=== PATIENT | male | born 1990 | race Caucasian/White ===

== ENCOUNTER 2020-06-09 19:11 | Emergency (ER) | payer MEDICAID, SELFPAY ==
[2020-06-09 19:20] VITALS: BP 140/89; PULSE 89; RESP 18; TEMP 36.8; O2SAT 98
--- NOTE | 2020-06-09 20:03 | PDOC.CMSAFED ---
- If Service Date Differs Date of service: 06/09/20 Time of Service: 20:03 Care Management Safety Plan Chief Complaint: Romaine is a 29 year old male who presents in the emergency department for depression and anxiety. He admits to ED staff that he does occasionally have thoughts of not living but denies current suicidal ideation, intent or plan to harm himself. He worries he may have an undiagnosed bipolar disorder due to episodes of jhonny and depression. He is currently enrolled in a MAT program at a [facility]one clinic, but denies seeing a counselor or psychiatrist. CM will respond to ED to assess patient after patient has been medically cleared and assessed by screener. If screener deems patient meets criteria for psychiatric stabilization CM will facilitate interdepartmental huddle with [facility] screener for safety planning considerations and meet with patient to review [facility] policy and safety plan, establish individual wishes for treatment and maintain patient rights. In the interim; please note safety plan below to guide patient care while awaiting further assessment in the ED. SAFETY PLAN: 1. Will remain on suicide precautions and in paper clothes. 2. Will remain in room under direct supervision of one-on-one staff at all times provided by [employer], [employer], [employer] grant coordinator. 3. May have paper cups, plates, finger foods as well as a cardboard spoon with which to eat meals. 4. Follow [facility] Management of the Admitted Behavioral Health Patient policy. 5. Comfort bath system only. 6. No personal belongings 7. Visitors: No visitors at this time. 8. Activities: Soft tip markers, paper, books, television if available, and other activities at nursing discretion. 8. No telephone privileges at this time. 9. Due to VOLUNTARY status, if patient wishes to leave [facility], the [facility] plant production worker must be contacted to evaluate patient prior to patient exiting the building. If deemed appropriate for inpatient psychiatric care, safety plan will be established with patient, and care team, to adhere to patient goals, identify restrictions based on behavioral status, address nutrition, and determine allowed personal belongings, tools for hygiene and personal care. As well plan will determine level of activity including ambulation, level of supervision, visitors, and determine privileges based on level of acuity, behaviors and level of engagement by patient. DISPOSITION: Romaine is evaluated by Milena [facility] Crisis Screener. A plan for follow up with [facility] is created and Romaine is discharged home.
--- NOTE | 2020-06-09 20:28 | W.ED.GENAD ---
Discharge Plan Disposition Patient Disposition: HOME Condition: Stable Discharge Details Clinical Impression: Depression Primary Care Provider: None,None ED Provider: Wale Robbins Discharge Instructions Instructions: Depression (ED) Additional Instructions: Please follow the instructions given to you by the [facility] human services team. They should be reaching out to you tomorrow for additional resources and are in the process of getting you a outpatient mental health provider. I have also placed you on the care management list to help expedite outpatient primary care follow-up. Please watch for new or worsening symptoms and return to the ER for any concerns. Medical Decision Making 29-year-old gentleman who is currently in the [facility], admits to anxiety and depression. He does have episodes of jhonny and feels as though he is not diagnosed properly. He feels as though he likely has bipolar, this does run in his family. He denies any recent illness or trauma. Occasionally has thoughts of harming himself but never wants to act upon them and does not have these thoughts currently. He does not see a counselor, does not have a psychiatrist, and does not have any other outpatient resources. Patient reports that he would prefer to do this as an outpatient. He does not want to voluntarily go in to a facility for treatment and I do not believe as though he would meet criteria for involuntary hold. For this reason I do not believe that laboratory values are indicated. Patient is medically cleared and I have reached out to our mental health team to get him evaluated. Health evaluation took place, please see the note by Milena. Patient does not meet involuntary psychiatric placement. Plan is to discharge the patient from the ER, she will follow up with him tomorrow, and work on additional outpatient resources. I will place the patient on the care management list to help expedite outpatient primary care follow-up as well. I discussed this plan with patient. He is agreeable however he is frustrated because he feels as though he needs to start medications sooner than later and he was hoping that this visit would prompt medications immediately. He understands that it is a process and is comfortable with discharge at this time. He was encouraged to return to the ER for new or worsening symptoms. He does not have any active suicidal or homicidal plans. He feels safe with discharge HPI General Mode of arrival: ambulatory. Date/Time Provider Initiated Documentation: 06/09/20 19:31. Limitations to Documentation: no limitations. Information obtained by: patient and family. HPI Narrative: This is a 29-year-old gentleman with history of anxiety, depression, substance abuse, currently going to the [facility] clinic. He states that bipolar runs in his family and although he does have anxiety and depression, he does have episodes of jhonny as well and believes that he is not diagnosed properly. He admits that he has had occasional thoughts of self-harm but denies any this very moment. When he does have thoughts of self-harm he has never wanted to act upon his thoughts and has never tried to harm himself in the past. He denies any homicidal thoughts. He feels safe currently denies recent illness or trauma. Denies headache, fever, chest pain, shortness of breath abdominal pain, nausea, vomiting. He admits to smoking cigarettes. Admits to marijuana use. Denies alcohol or any other drugs. He does not see a counselor or psychiatrist. General Stated Complaint: PsychEval PATIRCIA: 2 Review of Systems Constitutional Constitutional: Denies fever(s) and Denies headache(s) Eyes Eyes: Denies change in vision ENT Ears, Nose, Mouth, and Throat: Denies headache(s) Cardiovascular Cardiovascular: Denies chest pain and Denies dyspnea Respiratory Respiratory: Denies cough and Denies dyspnea Gastrointestinal Gastrointestinal: Denies abdominal pain, Denies nausea and Denies vomiting Musculoskeletal Musculoskeletal: Denies back pain Integumentary/Breasts Skin/Breast: Denies rash Neurologic Neurologic: Denies headache(s) Psychiatric Psychiatric: Reports anxiety, Reports depression, Reports mood swings, Denies paranoia, Denies homicidal ideation and Reports suicidal ideation (Occasional, not currently) [facility], [facility] Social History Smoking/Tobacco Use Status: Current every day Tobacco Type: cigarettes Alcohol Intake: never Drug use: Current Sobriety Substance use type: marijuana, heroin and opiates Do you feel safe at home: Yes Do you feel safe in your relationship?: Yes Exam Const General: cooperative, healthy appearing, comfortable and no acute distress Orientation: alert, awake and oriented x3 HENMT Head: normal to inspection, normocephalic and atraumatic Mouth: moist mucous membranes Eyes Conjunctivae: conjunctivae normal Sclera: sclerae normal Neck Neck: normal visual inspection, full ROM, trachea midline and supple Resp Effort & Inspection: normal respiratory effort and able to speak in complete sentences Auscultation: clear to auscultation bilaterally Cardio Rate: regular rate Rhythm: regular rhythm GI Palpation: soft and nontender Skin General skin exam: no rashes or lesions noted Neuro General: patient alert, patient awake, patient oriented x3, moves all extremities and no focal motor deficits Cranial Nerves: CN's II-XI intact bilaterally Cognition: normal cognition Speech: speech normal Gait: normal gait Motor: muscle tone normal throughout Sensory Exam: no sensory deficits noted Extrem General: normal to inspection, full ROM and capillary refill normal Psych Appearance: grossly normal Mental Status: mental status grossly normal Speech and Movement: speech and movement normal Mood: dysthymic mood Affect: sad Attitude: cooperative Thought Process: normal Thought Content: normal Insight: insight good Judgment: judgment good Course Vital Signs Vital signs: Vital Signs Temperature 36.8 C 06/09/20 19:20 Pulse 89 06/09/20 19:20 Respiratory Rate 18 06/09/20 19:20 Blood Pressure 140/89 06/09/20 19:20 Pulse Oximetry 98 06/09/20 19:20 Temperature 36.8 C 06/09/20 19:20 Temperature Source Temporal Artery Scan 06/09/20 19:20 Pulse 89 06/09/20 19:20 Respiratory Rate 18 06/09/20 19:20 Respiratory Effort 06/09/20 19:24 Blood Pressure 140/89 06/09/20 19:20 Blood Pressure Position Sitting 06/09/20 19:20 Pulse Oximetry 98 06/09/20 19:20 Oxygen Delivery Method Room Air 06/09/20 19:20 Oxygen Flow Rate 0 06/09/20 19:20 Pain Level 0 06/09/20 19:20
--- NOTE | 2020-06-09 20:41 | PDOC.MHCN ---
Date of service: 06/09/20 Time of Service: 20:41 Mental Health Crisis Note Presenting Issue How did you arrive at the ED and why did you come: Romaine arrived tonight with his fiance for evaluation and support. Precipitating Factors Romaine reports thoughts of SI but has never put in action or even thought of a plan. He has not intention of acting on any thoughts. He is not showing any signs of delusions. Disposition BEHAVIOR: Romaine is cooperative and engaged. He is actively seeking support and a referral for a provider who can treat his likely MH issues/symptoms. EYE CONTACT: Romaine' eye contact is good. MOOD: Romaine presents this evening as in a good mood but reports anger in the am that he feels he cannot explain or control. AFFECT: Romaine' affect is normal. APPETITE: Romaine reports that he can go day's without eating and then he can eat for days. It all depends on the mood. SLEEP(trouble falling/staying asleep: Romaine reports poor sleep consistently. Plan Romaine wants to feel better. I will make an in house referral for him to see a PMHNP or Psychiatrist and have asked the ER provider to make a referral for care management to arrange for a a PCP referral. I will speak with him as well tomorrow about an IOP referral as well. Signature Clinician's Name/Title: Milena Guillen MS, [facility] [[email or web address]] Emergency Services Clinician.
--- NOTE | 2020-06-09 20:46 | NUR.NOTE ---
REFTERAL GIVEN TO CM 06/09/20Nursing Note:
== END 2020-06-09 20:45 | disposition home or self-care (01) ==
PROVIDERS: Emergency Provider Physician Assistant
DX: F41.8 Other specified anxiety disorders (principal); F11.20 Opioid dependence, uncomplicated; Z81.8 Family history of other mental and behavioral disorders
CPT/HCPCS: 99283